=== PATIENT | male | born 1940 | race Caucasian/White ===

== ENCOUNTER 2023-09-26 10:30 | Emergency (ER) | payer OTHER ==
[~2023-09-26] VITALS: Ht 185.4 cm; Wt 65.8 kg
[2023-09-26 11:46] VITALS: TEMP 98
[2023-09-26] MEDS: MINERAL OIL 133 ML (PYXIS) 1 EA ENEMA RC ONE (12:15)
[2023-09-26] MEDS: MAGNESIUM CITRATE 296 ML BOTTLE PO ONE (12:23)
[2023-09-26] MEDS: PEG 3350/NA SULF,BICARB,CL/KCL 4,000 ML BOTTLE PO ONE (12:40)
[2023-09-26] MEDS ORDERED: LIDOCAINE VISCOUS 2% UD 15 ML UDC ONE (14:25)
[2023-09-26] MEDS ORDERED: DOCU-141 PO (14:27)
[2023-09-26] MEDS ORDERED: LIDO28CR2 TP (14:27)
[2023-09-26] MEDS ORDERED: POLY17PO4 PO (14:27)
[2023-09-26] MEDS ORDERED: PHENYLEPHRINE/SHK LV/MO/PET,WH 30 GM TUBE RC PRN (14:30)
[2023-09-26] MEDS: LIDOCAINE VISCOUS 2% UD 15 ML UDC MM ONE (15:00)
[2023-09-26 18:13] VITALS: BP 130/87; O2SAT 97
== END 2023-09-26 18:13 | disposition home or self-care (01) ==
LOC: ER 10:37
DX: K59.00 Constipation, unspecified (principal); I10 Essential (primary) hypertension; I48.91 Unspecified atrial fibrillation; Z79.899 Other long term (current) drug therapy; Z98.890 Other specified postprocedural states; Z60.2 Problems related to living alone